=== PATIENT | female | born 1995 | race Hispanic/Latino ===

== ENCOUNTER 2023-12-15 19:04 | Emergency (ER) | payer OTHER, SELFPAY ==
[2023-12-15 19:04] VITALS: BMI 22.0
[2023-12-15 19:08] VITALS: BP 139/71
[2023-12-15 19:59] LABS: % Basophils 0.4 % (0-2); % Immature Granulocytes 0.3 % (0-0.5); % Lymphocytes 24.3 % (20.5-51.1); % Monocytes 8.4 % (1.7-9.3); % Neutrophils 64.6 % (42.2-75.2); Absolute Basophils 0.1 10^3/uL (0-0.2); Absolute Eosinophils 0.3 10^3/uL (0-0.7); Absolute Lymphocytes 3.3 10^3/uL (1.2-3.4); Absolute Monocytes 1.2 10^3/uL (0.1-0.6); Absolute Neutrophils 8.9 10^3/uL (1.4-6.5); Hematocrit 34.6 % (37.0-47.0); Hemoglobin 12.4 g/dL (12.0-16.0); Mean Corp Hgb Conc. 35.8 g/dL (33.0-37.0); Mean Corpuscular Volume 89.2 fL (81.0-99.0); Mean Platelet Volume 9.5 fL (7.4-10.4); Nucleated Red Blood Cells % 0 %; Platelet Count 257 10^3/uL (130-400); Red Blood Cell Count 3.88 10^6/uL (4.20-5.40); Red Cell Dist. Width 12.8 % (11.5-14.5); White Blood Cell Count 13.7 10^3/uL (4.8-10.8)
[2023-12-15 20:00] VITALS: BP 127/74
[2023-12-15 20:01] LABS: HCG, Urine Qualitative Screen Positive
[2023-12-15] MEDS: NSS 1000 IV (20:19)
[2023-12-15 20:42] LABS: ALT (SGPT) 14 U/L (0-35); AST (SGOT) 19 U/L (14-36); Albumin 4.7 g/dl (3.5-5.0); Alkaline Phosphatase 55 U/L (38-126); Blood Urea Nitrogen 13 mg/dl (7-17); Calcium 10.1 mg/dl (8.4-10.2); Carbon Dioxide 19 mmol/L (22-30); Chloride 103 mmol/L (98-107); Estimated Creatinine Clearance 118 ml/min; Glucose 90 mg/dl (70-99); Potassium 3.9 mmol/L (3.5-5.1); Sodium 135 mmol/L (135-145); Total Bilirubin 0.3 mg/dl (0.2-1.3); Total Protein 7.6 g/dl (6.3-8.2); eGFR > 60.00
--- NOTE | 2023-12-15 21:07 | ED.GENMED ---
History of Present Illness
General
Chief Complaint: Problems
Source: patient
Exam Limitations: none
Time Seen by Provider: 12/15/23 19:51
Nursing documentation reviewed up to this point in time: agreed with
History of Present Illness
History of Present Illness:
28-year-old female [id number], with history of cholecystectomy states she had a positive test 2 weeks ago and thinks that she is about 7 weeks . She has been nauseous with intermittent vomiting, vomiting got worse today and
she states she vomited about 5 times. She developed left lower quadrant and left lower back pain today she denies vaginal discharge or bleeding. She denies chest pain or shortness of breath. Denies fever or chills. Denies UTI symptoms. Denies
constipation or diarrhea.
Past History
Past History
ED Past Medical History: Asthma
ED Past Surgical History: Cholecystectomy
Social History
Tobacco: Former smoker
Alcohol: None
Drug: None
Personal: Single
Living: other (With fianc�)
Employment: Employed
Review of Systems
Review of Systems
Allergies reviewed?: Yes
All Other Systems: ROS reviewed and negative except as documented in HPI and ROS
Constitutional: Denies fever
Respiratory: Denies trouble breathing
Cardiac: Denies chest pain
ABD/GI: Reports abdominal pain, nausea and vomiting; Denies diarrhea, constipated, bloody stools or black stools
: Denies dysuria, frequency, difficulty voiding, urgency, bleeding or discharge
Musculoskeletal: Reports no symptoms
Skin: Reports no symptoms
Neurological: Reports no symptoms
Phy Exam
Physical Exam
Physical Exam:
GENERAL: No acute distress. A&Ox3.
CONSTITUTIONAL: Afebrile.
EYES: Clear, conjunctivae normal
ENMT: moist mucus membranes, Pharynx nl
RESPIRATORY: Regular respirations, nonlabored, lungs clear.
CARDIOVASCULAR: Regular rate and rhythm, no murmurs, no rubs.
GI: Soft, mild LLQ tenderness , normal BS
MUSCULOSKELETAL: Moves with ease. Well perfused.
SKIN: Warm, dry, pink
PSYCH: Normal mood and affect. Well kept, interactive and appropriate
NEUROLOGIC: Awake, alert and oriented. No focal neurological deficits
Course
Orders/Labs/Results
Orders:
Orders
12/15/23 19:45
Test Result ONCE
12/15/23 19:50
Beta HCG Quantitative Urgent
Comment: ADD ON
Complete Blood Count/With Diff Urgent
Comprehensive Metabolic Panel Urgent
HCG, Urine Qualitative Screen Urgent
Date Specimen was Collected: 12/15/23
Time Specimen was Collected: 19:45
Urinalysis Reflex To Culture Urgent
Date Specimen was Collected: 12/15/23
Time Specimen was Collected: 19:45
Comment: ADD ON
Urine Microscopic Reflex Cult Urgent
Urine Culture Urgent
JYOTSNA Source: U
Specimen Description:
Date Specimen was Collected: 12/15/23
Time Specimen was Collected: 19:45
12/15/23 19:52
US 1st Trimester Urgent
Comment:
Reason For Exam: abd pain, 7 weeks
12/15/23 20:19
0.9% Sodium Chloride 1000 ml [Nss] 1,000 ml IV BOLUS
12/15/23 21:14
Add On- LAB Urgent
Tests Added?: urinalysis reflex to culture
12/15/23 22:22
Add On- LAB Urgent
Tests Added?: HCG quant beta
Abnormal Lab Results
12/15/23
19:50
WBC 13.7 H 10^3/uL
(4.8-10.8)
RBC 3.88 L 10^6/uL
(4.20-5.40)
Hct 34.6 L %
(37.0-47.0)
MCH 32.0 H pg
(27.0-31.0)
Absolute Neuts (auto) 8.9 H 10^3/uL
(1.4-6.5)
Absolute Monos (auto) 1.2 H 10^3/uL
(0.1-0.6)
Carbon Dioxide 19 L mmol/L
(22-30)
Creatinine 0.4 L mg/dL
(0.6-1.0)
Ur Occult Blood Reflex 2+ A
(Negative)
Urine Bacteria (Reflex) Many A
(Negative)
12/15/23 19:50
12/15/23 19:50
Vital Signs
Initial and Last Documented VS:
Initial Vital Signs
Temp Pulse Resp BP Pulse Ox
98.7 F 91 20 139/71 100
12/15/23 19:08 12/15/23 19:08 12/15/23 19:08 12/15/23 19:08 12/15/23 19:08
Last Documented Vital Signs
Temp Pulse Resp BP Pulse Ox
98.7 F 71 16 124/69 98
12/15/23 19:08 12/16/23 00:09 12/16/23 00:09 12/16/23 00:09 12/16/23 00:09
Multimedia Authoring Specialist consulted with Physician
Multimedia Authoring Specialist consulted with physician?: Yes
Name of Physician Consulted: Susu
Information
Weeks gestation: Weeks: (7)
Location: N/A
MDM/Problems Addressed
Differential Diagnosis Includes:
Ectopic , normal early , threatened miscarriage
MDM/Problems Addressed:
28-year-old female [id number], with history of cholecystectomy states she had a positive test 2 weeks ago and thinks that she is about 7 weeks . She has been nauseous with intermittent vomiting, vomiting got worse today and
she states she vomited about 5 ti
CBC: WBC 13.7 otherwise unremarkable
CMP: No clinically significant abnormality
Beta qualitative positive
Beta quant pending
UA negative
Abdomen w mild tenderness LLQ, no palpable masses.
No diarrhea/constipation, bloody stools, no hx diverticulitis, not likely this. If pain persists, may need imaging to rule this out.
Pelvic ultrasound radiology report read: Single live intrauterine gestation of 6 weeks 4 days �1-week with a heart rate of 113 bpm
2.6 cm involuting cyst of the right ovary bilateral ovarian blood flow documented.
Discussed results with pt and partner. Informed that HR is not normal for this gestational age but it could be a one time read. She informs me she has an US scheduled in [place] on 12/27.
Beta HCG Quantitative: [address].[address] Miranda [facility]IL[facility]ER SERVIC[facility] to call tomorrow for US within the next week.
Since Beta Quant is normal, Case discussed with Dr. Cristobal who agrees with plan
*Critical Care Note
Total Time (30-74mins, 75-104mins- exclusive of procedures): Not Applicable
ED Attending Note
-
Portions of this chart may have been created with voice recognition software.� Occasional wrong word or��sound alike� substitutions may have occurred due to the inherent limitations of voice recognition software.
Discharge Plan
Departure
Patient Disposition: Home (Routine Discharge)
Date of Disposition: 12/15/23
Time of Disposition: 23:30
Patient with high blood pressure during this ER visit?: No
Condition: Good
Discharge Problem:
Abdominal pain, at early stage
Instructions: Threatened Miscarriage (DC), symptoms
Prescriptions:
New
doxylamine-pyridoxine (vit B6) [Diclegis] 10-10 mg tablet,delayed release (DR/EC)
1 tab PO BID PRN (Reason: Nausea and vomiting) Qty: 10 0RF
No Action
albuterol sulfate [Proventil HFA] 90 MCG/PUFF HFA aerosol inhaler
2 puff inhalation Q4HPRN PRN (Reason: shortness of breath) Qty: 1 0RF
Referrals:
Radha Miranda DO [Active] - Tomorrow
Gwendolyn Arauz, DO [Family Provider] -
Stand Alone Forms: Return to Work
Activity Restrictions/Additional Instructions:
As we discussed although the heart rate reading was lower than usual, the hormone level is very good.
Call the [facility] F[facility]IL[facility]IC[facility] doctor office tomorrow a.m., inform them you were here and we recommend follow up within the next week for repeat US.
There is no sign you are having a miscarriage at this time, I have provided you with information on threatened miscarriage FYI.
You may return here at any time if you develop worse abdominal pain, vaginal bleeding or discharge, or anything that worries you.
Tylenol 1000 mg every 6 hours up to 3 times a day as needed for pain.
I sent a prescription to your pharmacy for Diclegis for nausea to use if needed.
Interventions
Interventions:
*Risk Screen - Suicide Last Done: 12/15/23 19:08
*General Assessment Last Done: 12/15/23 19:08
*Neglect/Abuse Screening Last Done: 12/15/23 19:08
ED- Fall Risk Assessment Last Done: 12/15/23 20:16
*ED COVID-19 Vaccine History Last Done: 12/15/23 23:28
*Nursing Disposition Last Done: 12/16/23 00:09
ED-Female Genitourinary Assessment Last Done: 12/15/23 20:16
Discharge Date and Time
Discharge Date/Time: 12/16/23 00:11
Print Language: CAMBODIAN
[2023-12-15 21:44] LABS: Urine Albumin Negative (Neg - Trace); Urine Bilirubin Negative (Negative); Urine Character Very Cloudy (Clear); Urine Color Yellow; Urine Glucose Negative (Negative); Urine Ketone Negative (Negative); Urine Leukocyte Negative (Negative); Urine Nitrite Negative (Negative); Urine Occult Blood 2+ (Negative); Urine Specific Gravity 1.025 (<1.030); Urine Urobilinogen Negative (Neg - 1+)
[2023-12-15 21:54] LABS: Urine Calcium Oxalate Crystals Present; Urine Red Blood Cell 0-2 /HPF (0-2); Urine White Cell 0-2 /HPF (0-5)
[2023-12-15 21:55] LABS: Urine Bacteria Many (Negative)
[2023-12-15 22:00] VITALS: BP 127/80
[2023-12-16 00:09] VITALS: BP 124/69
== END 2023-12-16 00:11 | disposition home or self-care (01) ==
LOC: EMR 19:04
PROVIDERS: Student in an Organized Health Care Education/Training Program; EMERGENCY PHYSICIAN Emergency Medicine; FAMILY PHYSICIAN Family Medicine
DX: O26.891 Other specified pregnancy related conditions, first trimester (principal); Z3A.01 Less than 8 weeks gestation of pregnancy; R11.2 Nausea with vomiting, unspecified; R10.9 Unspecified abdominal pain; M54.50 Low back pain, unspecified; N83.201 Unspecified ovarian cyst, right side; J45.909 Unspecified asthma, uncomplicated; Z90.49 Acquired absence of other specified parts of digestive tract; Z87.891 Personal history of nicotine dependence; Z91.013 Allergy to seafood
CPT/HCPCS: 99284; 96360; 76801; 80053; 81003; 81015; 81025; 84702; 85025; 87086

== ENCOUNTER → 2024-01-14 13:58 | Outpatient (REF) | payer OTHER, SELFPAY | LOC: HWRAD 13:58 | PROVIDERS: ATTENDING PHYSICIAN Family Medicine | DX: R59.0 Localized enlarged lymph nodes (principal) | CPT/HCPCS: 76882 ==

== ENCOUNTER 2024-02-22 15:52 | Emergency (ER) | payer OTHER, SELFPAY ==
[2024-02-22 15:54] VITALS: BP 99/67
[2024-02-22 15:55] VITALS: BP 99/67
--- NOTE | 2024-02-22 16:27 | ED.GENMED ---
History of Present Illness
General
Chief Complaint: Abdominal Pain
Source: patient
Exam Limitations: none
Time Seen by Provider: 02/22/24 16:08
Nursing documentation reviewed up to this point in time: agreed with
History of Present Illness
History of Present Illness:
The patient is a 28-year-old G3, P1 who is about 17 weeks who reports sudden onset of pain in her left lower pelvic area, which she describes as a pop sensation. This occurred about an hour ago while she was laughing. Patient reports that
initially the pain radiated down her left leg and caused tingling of her feet. Patient reports that the radiation of pain down the legs and tingling has resolved completely, however, she still has moderate pain in her left pelvic area and also in
her left lower back. Patient reports she initially felt nauseous but she no longer feels nauseous. She denies fevers and chills. She denies any increased frequency of urination or difficulty urinating. She denies vaginal bleeding. Patient has
had an ultrasound during this in the past which has showed a viable IUP.
Past History
Past History
ED Past Medical History: Asthma
ED Past Surgical History: Cholecystectomy
Social History
Tobacco: Former smoker
Alcohol: None
Drug: None
Personal: Single
Living: other (With fianc�)
Employment: Employed
Family History
Family History: Other
Review of Systems
Review of Systems
Allergies reviewed?: Yes
All Other Systems: ROS reviewed and negative except as documented in HPI and ROS
Constitutional: Reports no symptoms
EENT: Reports no symptoms
Respiratory: Reports no symptoms
Cardiac: Reports no symptoms
ABD/GI: Reports abdominal pain and nausea
: Reports no symptoms
Musculoskeletal: Reports muscle pain
Skin: Reports no symptoms
Neurological: Reports numbness (Tingling in her feet bilaterally which has resolved)
Endocrine: Reports no symptoms
Hematologic/Lymphatic: Reports no symptoms
Psychiatric: Reports no symptoms
Phy Exam
Physical Exam
Physical Exam:
Physical Exam
General: no apparent distress, not acutely ill. Well and comfortable appearing
Neck: supple.
Heart: s1/s2 regular rate and rhythm, no murmur. equal radial pulses.
Lungs: no acute respiratory distress.
Abdomen: Gravid, soft, mild left pelvic tenderness without rebound or guarding. No pulsatile mass associated
Neuro: alert and oriented. no focal neurological deficits. Intact sensation in lower extremities bilaterally.
Skin: no rash
Psychiatric: well kept. interactive and cooperative
Extremities: no edema. no calf tenderness. Strong pulses in feet bilaterally
Course
Orders/Labs/Results
Orders:
Orders
02/22/24 16:21
Acetaminophen [Tylenol] 1,000 mg PO NOW STA
02/22/24 16:22
US Kidneys [US Renal Only W/O Bladder] Urgent
Comment:
Reason For Exam: left flank pain
02/22/24 16:24
US 2nd/3rd Trimester Urgent
Comment:
Reason For Exam: sudden 'pop' in L pelvic area
02/22/24 18:43
Urinalysis Reflex To Culture Urgent
Date Specimen was Collected: 02/22/24
Time Specimen was Collected: 18:41
Vital Signs
Initial and Last Documented VS:
Initial Vital Signs
Temp Pulse Resp BP Pulse Ox
98.2 F 92 16 99/67 99
02/22/24 15:54 02/22/24 15:54 02/22/24 15:54 02/22/24 15:54 02/22/24 15:54
Last Documented Vital Signs
Temp Pulse Resp BP Pulse Ox
98.2 F 88 16 99/67 100
02/22/24 15:55 02/22/24 15:55 02/22/24 15:55 02/22/24 15:55 02/22/24 15:55
MDM/Problems Addressed
Differential Diagnosis Includes:
left ovarian torsion, ruptured ovarian cyst, acute diverticulitis, renal colic, UTI,
MDM/Problems Addressed:
Patient presents with acute left pelvic and lower back pain
Chronic conditions affecting care: Asthma
Acute Exacerbation and/or Progression of Chronic Illness:
patient is breathing comfortably. No sign of acute exacerbation of asthma
Acute Exacerbation and/or Progression of Chronic Illness: Asthma
*Radiology
Radiology exam reviewed: radiology read reviewed
*Pulse Oximetry
Patient hypoxic: no
*EKG
Interpreted by ED Provider?: NA
*Critical Care Note
Total Time (30-74mins, 75-104mins- exclusive of procedures): Not Applicable
Data Reviewed
Review of Other/Old Records Reveals: Radiology Studies (Pelvic ultrasound reviewed from 12/15/2023 which shows a viable intrauterine )
Source: patient
Patient Management
Social determinants of health affecting care: Living situation and Strong social support
Escalation/DeEscalation of care consider admission/obs:
Patient still remains well and comfortable at rest. She continues to have no fever and denies nausea, vomiting and diarrhea. Ultrasound shows no sign of ovarian torsion or any free fluid. With her history, it is still possible that she could have
ruptured an ovarian cyst on the left side. Patient has excellent strength and sensation of her lower extremities and there is no sign of cauda equina.
ED Attending Note
-
Portions of this chart may have been created with voice recognition software.� Occasional wrong word or��sound alike� substitutions may have occurred due to the inherent limitations of voice recognition software.
Discharge Plan
Departure
Patient Disposition: Home (Routine Discharge)
Date of Disposition: 02/22/24
Time of Disposition: 19:11
Patient with high blood pressure during this ER visit?: No
Condition: Good
Covid-19: Not Applicable
Discharge Problem:
Abdominal pain, left lower quadrant
Instructions: [place] Diet, Abdominal Pain
Prescriptions:
No Action
albuterol sulfate [Proventil HFA] 90 MCG/PUFF HFA aerosol inhaler
2 puff inhalation Q4HPRN PRN (Reason: shortness of breath) Qty: 1 0RF
doxylamine-pyridoxine (vit B6) [Diclegis] 10-10 mg tablet,delayed release (DR/EC)
1 tab PO BID PRN (Reason: Nausea and vomiting) Qty: 10 0RF
Referrals:
UNKNOWN - PT DOES,NOT KNOW [Family Provider] -
Stand Alone Forms: Return to Work
Activity Restrictions/Additional Instructions:
Please return if the pain becomes severe, you develop vomiting, or fever.
Take 1000 mg of Tylenol every 4-6 hours for pain.
Please follow-up with your log preparer within 1 week
Interventions
Interventions:
GX-Fsypbe-[id number] Assessment Last Done: 02/22/24 16:37
Discharge Date and Time
Print Language: HEBREW
[2024-02-22] MEDS: TYLENOL 1000 MG PO (16:29)
[2024-02-22 18:47] LABS: Urine Albumin Negative (Neg - Trace); Urine Bilirubin Negative (Negative); Urine Character Clear (Clear); Urine Color Yellow; Urine Glucose Negative (Negative); Urine Ketone Negative (Negative); Urine Leukocyte Negative (Negative); Urine Nitrite Negative (Negative); Urine Occult Blood Negative (Negative); Urine Specific Gravity 1.005 (<1.030); Urine Urobilinogen Negative (Neg - 1+)
[2024-02-22 20:07] VITALS: BP 126/61
== END 2024-02-22 19:30 | disposition home or self-care (01) ==
LOC: EMR 15:52
PROVIDERS: EMERGENCY PHYSICIAN Emergency Medicine
DX: O26.892 Other specified pregnancy related conditions, second trimester (principal); O99.512 Diseases of the respiratory system complicating pregnancy, second trimester; R10.32 Left lower quadrant pain; Z3A.17 17 weeks gestation of pregnancy; R20.0 Anesthesia of skin; M79.605 Pain in left leg; R20.2 Paresthesia of skin; R10.2 Pelvic and perineal pain; M54.50 Low back pain, unspecified; R11.0 Nausea; R25.2 Cramp and spasm; M79.10 Myalgia, unspecified site; J45.909 Unspecified asthma, uncomplicated; Z87.891 Personal history of nicotine dependence; Z90.49 Acquired absence of other specified parts of digestive tract; Z91.013 Allergy to seafood
CPT/HCPCS: 99284; 76775; 76805; 81003

== ENCOUNTER 2024-04-04 16:56 | Emergency (ER) | payer OTHER, SELFPAY ==
[2024-04-04 16:58] VITALS: BP 123/73
--- NOTE | 2024-04-04 18:03 | ED.GENMED ---
History of Present Illness
General
Chief Complaint: Problems
Time Seen by Provider: 04/04/24 17:57
History of Present Illness
History of Present Illness:
Patient is a 28-year-old woman G3, P1 at 22 weeks and 3 days presenting to the emergency department with abdominal pain and back pain. Patient states for the past 2 days has been having back pain that she attributed to being . Today
developed diffuse cramping that wraps underneath her abdomen. She also noticed that her urine has been dark with some blood. She denies any vaginal discharge to me. She does feel baby move as normal. She called her OB who told her to come here
for further evaluation. No nausea or vomiting. No dysuria or urinary frequency or urgency. No fevers or chills. She has had routine care this .
Past History
Past History
ED Past Medical History: Asthma
ED Past Surgical History: Cholecystectomy
Social History
Tobacco: Former smoker
Alcohol: None
Drug: None
Personal: Single
Living: other (With fianc�)
Employment: Employed
Family History
Family History: Other
Phy Exam
Physical Exam
Physical Exam:
GENERAL: Uncomfortable appearing
HEENT: normocephalic, extraocular movements intact, moist oral mucosa
NECK: normal inspection
RESPIRATORY: no respiratory distress, clear to auscultation bilaterally
CARDIOVASCULAR: regular rate and rhythm
ABDOMEN/: Gravid, soft, non-distended, diffusely tender to palpation in the right upper and right lower quadrant, no rebound or guarding, right-sided CVA tenderness
EXTREMITIES: non-tender, no edema/swelling
NEUROLOGIC: awake and alert, moves all extremities
SKIN: warm
Course
Orders/Labs/Results
Orders:
Orders
04/04/24 18:02
US Abdomen Complete/Upper Urgent
Comment:
Reason For Exam: flank pain, RLQ pain
04/04/24 18:03
Acetaminophen [Tylenol] 1,000 mg PO NOW STA
04/04/24 18:11
US Limited Urgent
Reason For Exam: abdominal pain
04/04/24 18:19
Complete Blood Count/With Diff Urgent
Comprehensive Metabolic Panel Urgent
Urinalysis Reflex To Culture Urgent
Date Specimen was Collected: 04/04/24
Time Specimen was Collected: 18:17
Urine Microscopic Reflex Cult Urgent
Urine Culture Urgent
JYOTSNA Source: U
Specimen Description:
Date Specimen was Collected: 04/04/24
Time Specimen was Collected: 18:17
04/04/24 18:27
Type+Screen Urgent
04/04/24 20:41
CeFAZolin 1 GRAM [Ancef] 1 gram in 5 ml IV NOW
Abnormal Lab Results
04/04/24
18:19
RBC 3.40 L 10^6/uL
(4.20-5.40)
Hgb 10.7 L g/dL
(12.0-16.0)
Hct 30.5 L %
(37.0-47.0)
MCH 31.5 H pg
(27.0-31.0)
Abs Immat Gran (auto) 0.1 H 10^3/uL
(0-0.05)
Absolute Neuts (auto) 7.3 H 10^3/uL
(1.4-6.5)
Potassium 3.4 L mmol/L
(3.5-5.1)
Creatinine 0.4 L mg/dL
(0.6-1.0)
Glucose 104 H mg/dl
(70-99)
Total Bilirubin 0.1 L mg/dl
(0.2-1.3)
Ur Occult Blood Reflex 4+ A
(Negative)
Urine RBC 26-30 A /HPF
(0-2)
Urine Bacteria (Reflex) Moderate A
(Negative)
04/04/24 18:19
04/04/24 18:19
Vital Signs
Initial and Last Documented VS:
Initial Vital Signs
Temp Pulse Resp BP Pulse Ox
98.8 F 81 18 123/73 98
04/04/24 16:58 04/04/24 16:58 04/04/24 16:58 04/04/24 16:58 04/04/24 16:58
Last Documented Vital Signs
Temp Pulse Resp BP Pulse Ox
98.8 F 81 18 119/66 99
04/04/24 16:58 04/04/24 16:58 04/04/24 16:58 04/04/24 20:30 04/04/24 20:45
Information
Weeks gestation: Weeks: (22)
Location: Location: ([facility])
MDM/Problems Addressed
Differential Diagnosis Includes:
Patient is a 28-year-old woman who is a G3, P1 at 22 weeks and 3 days presenting to the emergency department with right-sided back pain, lower abdominal pain as well as changes with her urine. Vitals are unremarkable and exam does show woman who is
extremely uncomfortable appearing with right-sided CVA tenderness and right upper and lower quadrant tenderness. Differential is broad but with the urine changes I am most concerned about pyelonephritis or kidney stone. Could also be appendicitis
or related. Will give Tylenol and check blood work urine and ultrasound
*Critical Care Note
Total Time (30-74mins, 75-104mins- exclusive of procedures): Not Applicable
Update Note
Update Note:
On reevaluation patient does feel slightly more comfortable after receiving the Tylenol. Blood work is unremarkable. Urine does show significant RBC with moderate bacteria though she does have squamous epithelial cells.
ultrasound unremarkable. Ultrasound abdomen does show dilation of the right renal collecting system but no visualized calculus. However the right ureteral jet is not visualized. I did discuss with OB who is in recommends admission for
IV antibiotics while culture awaits. Will also reach out to urology for possible stent placement.
Urology reached out to both OB team as well as me and recommended outpatient follow-up as likely could be hydronephrosis of or a regional stone. Given that patient is overall well-appearing and pain is controlled will discharge with oral
antibiotics. Strict return precautions given. Will give patient follow-up for urology and she will call her OB team tomorrow for an appointment
ED Attending Note
-
Portions of this chart may have been created with voice recognition software.� Occasional wrong word or��sound alike� substitutions may have occurred due to the inherent limitations of voice recognition software.
Discharge Plan
Departure
Patient Disposition: Home (Routine Discharge)
Date of Disposition: 04/04/24
Time of Disposition: 20:29
Patient with high blood pressure during this ER visit?: No
Discharge Problem:
Hematuria
Prescriptions:
New
cephalexin 500 mg capsule
500 mg PO QID 7 Days Qty: 28 0RF
No Action
Tums E-X 300 mg (750 mg) Tablet,Chewable
600 mg PO Q1H
albuterol sulfate 90 mcg/actuation Hfa Aerosol Inhaler
2 puff INHALATION R Q4HPRN PRN (Reason: sob)
Referrals:
Naif Jenkins MD [Active] -
Gwendolyn Arauz DO [Family Provider] -
Activity Restrictions/Additional Instructions:
You were seen in the Emergency Department today. I did prescribe you antibiotics. Please take as prescribed. Please call urology for an appointment as well as your OB team tomorrow. Please come back to the emergency department with fevers chills
nausea or vomiting, or any worsening symptoms.
We would like for you to follow up with your primary care physician for further evaluation. If you experience fever, worsening of your symptoms, or develop any other new or concerning symptoms, please return to the Emergency Department immediately.
Please see the attached sheet for additional information.
Interventions
Interventions:
*Risk Screen - Suicide Last Done: 04/04/24 16:58
*General Assessment Last Done: 04/04/24 16:58
*Neglect/Abuse Screening Last Done: 04/04/24 16:58
*ED COVID-19 Vaccine History Last Done: 04/04/24 16:58
Discharge Date and Time
Print Language: NIGERIAN
[2024-04-04 18:09] VITALS: BMI 27.1
[2024-04-04] MEDS: TYLENOL 1000 MG PO (18:14)
[2024-04-04 18:27] LABS: Urine Albumin Negative (Neg - Trace); Urine Bilirubin Negative (Negative); Urine Character Clear (Clear); Urine Color Yellow; Urine Glucose Negative (Negative); Urine Ketone Negative (Negative); Urine Leukocyte Negative (Negative); Urine Nitrite Negative (Negative); Urine Occult Blood 4+ (Negative); Urine Urobilinogen Negative (Neg - 1+)
[2024-04-04 18:29] LABS: % Basophils 0.3 % (0-2); % Immature Granulocytes 0.5 % (0-0.5); % Lymphocytes 22.8 % (20.5-51.1); % Monocytes 4.7 % (1.7-9.3); % Neutrophils 69.7 % (42.2-75.2); Absolute Eosinophils 0.2 10^3/uL (0-0.7); Absolute Immature Granulocytes 0.1 10^3/uL (0-0.05); Absolute Lymphocytes 2.4 10^3/uL (1.2-3.4); Absolute Monocytes 0.5 10^3/uL (0.1-0.6); Absolute Neutrophils 7.3 10^3/uL (1.4-6.5); Hematocrit 30.5 % (37.0-47.0); Hemoglobin 10.7 g/dL (12.0-16.0); Mean Corp Hgb Conc. 35.1 g/dL (33.0-37.0); Mean Corpuscular Hgb 31.5 pg (27.0-31.0); Mean Corpuscular Volume 89.7 fL (81.0-99.0); Mean Platelet Volume 9.6 fL (7.4-10.4); Nucleated Red Blood Cells % 0 %; Platelet Count 231 10^3/uL (130-400); Red Cell Dist. Width 13.2 % (11.5-14.5); White Blood Cell Count 10.4 10^3/uL (4.8-10.8)
[2024-04-04 18:38] LABS: Urine Bacteria Moderate (Negative); Urine Red Blood Cell 26-30 /HPF (0-2)
[2024-04-04 18:42] LABS: ALT (SGPT) 12 U/L (0-35); AST (SGOT) 16 U/L (14-36); Albumin 4.1 g/dl (3.5-5.0); Alkaline Phosphatase 55 U/L (38-126); Blood Urea Nitrogen 8 mg/dl (7-17); Calcium 9.8 mg/dl (8.4-10.2); Carbon Dioxide 22 mmol/L (22-30); Chloride 100 mmol/L (98-107); Estimated Creatinine Clearance > 125 ml/min; Glucose 104 mg/dl (70-99); Potassium 3.4 mmol/L (3.5-5.1); Sodium 136 mmol/L (135-145); Total Bilirubin 0.1 mg/dl (0.2-1.3); eGFR > 60.00
[2024-04-04 20:30] VITALS: BP 119/66
[2024-04-04] MEDS: ANCEF 5 IV (20:53)
[2024-04-04 21:00] VITALS: BP 113/71
== END 2024-04-04 21:41 | disposition home or self-care (01) ==
LOC: EMR 16:56
PROVIDERS: EMERGENCY PHYSICIAN Student in an Organized Health Care Education/Training Program; FAMILY PHYSICIAN Family Medicine
DX: O99.891 Other specified diseases and conditions complicating pregnancy (principal); R31.9 Hematuria, unspecified; R10.84 Generalized abdominal pain; M54.9 Dorsalgia, unspecified; O99.512 Diseases of the respiratory system complicating pregnancy, second trimester; J45.909 Unspecified asthma, uncomplicated; Z87.891 Personal history of nicotine dependence; Z3A.22 22 weeks gestation of pregnancy
CPT/HCPCS: 96374; 99284; 76700; 76815; 80053; 81003; 81015; 85025; 87086

== ENCOUNTER → 2024-06-15 15:46 | Outpatient (REF) | payer OTHER, SELFPAY | LOC: PNTC 15:46 | PROVIDERS: ATTENDING PHYSICIAN Obstetrics & Gynecology | DX: O36.8190 Decreased fetal movements, unspecified trimester, not applicable or unspecified (principal) | CPT/HCPCS: 59025; 76815 ==

== ENCOUNTER 2024-08-03 14:43 | Observation (INO) | payer OTHER, SELFPAY ==
[2024-08-03 15:18] VITALS: BP 130/85; BMI 34.4
[2024-08-03 15:46] LABS: % Basophils 0.3 % (0-2); % Eosinophils 0.8 % (0-6); % Immature Granulocytes 0.6 % (0-0.5); % Lymphocytes 18.4 % (20.5-51.1); % Monocytes 7.2 % (1.7-9.3); % Neutrophils 72.7 % (42.2-75.2); Absolute Eosinophils 0.1 10^3/uL (0-0.7); Absolute Immature Granulocytes 0.1 10^3/uL (0-0.05); Absolute Lymphocytes 1.8 10^3/uL (1.2-3.4); Absolute Monocytes 0.7 10^3/uL (0.1-0.6); Absolute Neutrophils 6.9 10^3/uL (1.4-6.5); Hematocrit 36.9 % (37.0-47.0); Hemoglobin 12.5 g/dL (12.0-16.0); Mean Corp Hgb Conc. 33.9 g/dL (33.0-37.0); Mean Corpuscular Hgb 31.8 pg (27.0-31.0); Mean Corpuscular Volume 93.9 fL (81.0-99.0); Mean Platelet Volume 11.2 fL (7.4-10.4); Nucleated Red Blood Cells % 0 %; Platelet Count 153 10^3/uL (130-400); Red Blood Cell Count 3.93 10^6/uL (4.20-5.40); Red Cell Dist. Width 14.2 % (11.5-14.5); White Blood Cell Count 9.5 10^3/uL (4.8-10.8)
[2024-08-03] MEDS: PENICILLIN 110 UNITS IV (15:53)
[2024-08-03] MEDS: LR 1000 IV (15:53)
== END 2024-08-03 17:27 | disposition home or self-care (01) ==
LOC: LDRP 14:43
PROVIDERS: ADMITTING PHYSICIAN Obstetrics & Gynecology
DX: O47.1 False labor at or after 37 completed weeks of gestation (principal); O99.820 Streptococcus B carrier state complicating pregnancy; Z3A.39 39 weeks gestation of pregnancy
CPT/HCPCS: 36415; 85025; 86850; 86900; 86901; G0378

== ENCOUNTER 2024-08-03 21:18 | Inpatient (IN) | payer OTHER, SELFPAY ==
[2024-08-03 21:22] VITALS: BMI 34.4
[2024-08-03 21:33] VITALS: BP 129/76
[2024-08-03] MEDS: PENICILLIN 110 UNITS IV (21:51)
[2024-08-03 22:00] LABS: % Basophils 0.3 % (0-2); % Eosinophils 0.8 % (0-6); % Immature Granulocytes 0.6 % (0-0.5); % Lymphocytes 18.4 % (20.5-51.1); % Monocytes 7.4 % (1.7-9.3); % Neutrophils 72.5 % (42.2-75.2); Absolute Eosinophils 0.1 10^3/uL (0-0.7); Absolute Immature Granulocytes 0.1 10^3/uL (0-0.05); Absolute Monocytes 0.8 10^3/uL (0.1-0.6); Absolute Neutrophils 7.9 10^3/uL (1.4-6.5); Hematocrit 35.4 % (37.0-47.0); Hemoglobin 12.1 g/dL (12.0-16.0); Mean Corp Hgb Conc. 34.2 g/dL (33.0-37.0); Mean Corpuscular Hgb 31.4 pg (27.0-31.0); Mean Corpuscular Volume 91.9 fL (81.0-99.0); Mean Platelet Volume 11.1 fL (7.4-10.4); Nucleated Red Blood Cells % 0 %; Platelet Count 153 10^3/uL (130-400); Red Blood Cell Count 3.85 10^6/uL (4.20-5.40); Red Cell Dist. Width 14.2 % (11.5-14.5); White Blood Cell Count 10.9 10^3/uL (4.8-10.8)
[2024-08-03] MEDS: TUMS CHEWABLE TABLET 400 MG PO (23:39)
[2024-08-04] MEDS: SUBLIMAZE 100 MCG EPIDURAL (01:14)
[2024-08-04] MEDS: FENTANYL/BUPIVACAINE 100 EPIDURAL (01:14)
[2024-08-04] MEDS: LR 1000 IV (01:34)
[2024-08-04] MEDS: PENICILLIN 55 UNITS IV (01:41)
[2024-08-04] MEDS: TUMS CHEWABLE TABLET 400 MG PO (02:08)
[2024-08-04] MEDS: PRENATAL PLUS 1 TABLET PO (08:28)
[2024-08-04] MEDS: FEOSOL 325 MG PO (08:28)
[2024-08-04] MEDS: SENOKOT-S 1 TABLET PO (08:28)
[2024-08-04] MEDS: MOTRIN 600 MG PO ×3 (08:28→22:42)
[2024-08-04] MEDS: PEPCID 40 MG PO ×2 (08:36→19:57)
[2024-08-04] MEDS: ProAIR HFA INHALER 2 PUFF INH ×2 (09:06→13:36)
[2024-08-04] MEDS: TYLENOL 650 MG PO (22:43)
[2024-08-05] MEDS: SENOKOT-S 1 TABLET PO (00:53)
[2024-08-05 04:37] LABS: Hematocrit 30.4 % (37.0-47.0); Hemoglobin 10.1 g/dL (12.0-16.0)
[2024-08-05] MEDS: MOTRIN 600 MG PO ×3 (04:51→19:44)
[2024-08-05] MEDS: TYLENOL 650 MG PO (04:51)
[2024-08-05] MEDS: PEPCID 40 MG PO ×2 (08:47→19:44)
[2024-08-05] MEDS: PRENATAL PLUS 1 TABLET PO (08:47)
[2024-08-05] MEDS: FEOSOL 325 MG PO (08:47)
[2024-08-05 17:47] LABS: Syphilis/T. pallidum Ab Reflex Negative (Negative)
[2024-08-06] MEDS: TYLENOL 650 MG PO ×2 (03:41→09:43)
[2024-08-06] MEDS: MOTRIN 600 MG PO ×2 (03:41→09:43)
[2024-08-06] MEDS: PRENATAL PLUS 1 TABLET PO (07:56)
[2024-08-06] MEDS: PEPCID 40 MG PO (07:56)
[2024-08-06] MEDS: FEOSOL 325 MG PO (07:56)
[2024-08-06] MEDS: SENOKOT-S 1 TABLET PO (09:42)
== END 2024-08-06 13:40 | disposition home or self-care (01) | DRG 807 ==
LOC: LDRP 21:18
PROVIDERS: ADMITTING PHYSICIAN Obstetrics & Gynecology
PROC: 4A1HXCZ Monitoring of Products of Conception, Cardiac Rate, External Approach (ICD-10-PCS; 2024-08-04)
PROC: 0KQM0ZZ Repair Perineum Muscle, Open Approach (ICD-10-PCS; 2024-08-04)
PROC: 10E0XZZ Delivery of Products of Conception, External Approach (ICD-10-PCS; 2024-08-04)
DX: O99.824 Streptococcus B carrier state complicating childbirth (principal); Z37.0 Single live birth; O69.81X0 Labor and delivery complicated by cord around neck, without compression, not applicable or unspecified; Z3A.39 39 weeks gestation of pregnancy; O70.1 Second degree perineal laceration during delivery; O99.52 Diseases of the respiratory system complicating childbirth; J45.909 Unspecified asthma, uncomplicated
CPT/HCPCS: 85014; 85018; 85025; 86780; 94640